=== PATIENT | female | born 1940 | race Caucasian/White ===

== ENCOUNTER 2020-09-13 17:54 | Emergency (ER) | payer OTHER ==
[2020-09-13 19:11] LABS: BILIRUBIN 1+ mg/dL (NEGATIVE); BLOOD NEGATIVE Ery/uL (NEGATIVE); CLARITY CLEAR (CLEAR); COLOR YELLOW (YELLOW); GLUCOSE (U) NORMAL (NORMAL); LEUKOCYTES 1+ Leu/uL (NEGATIVE); NITRITE NEGATIVE (NEGATIVE); PROTEIN 1+ mg/dL (NEGATIVE); SPECIFIC GRAVITY >=1.030 (1.001-1.030); UROBILINOGEN 0.2 mg/dL (0.2-1.0)
[2020-09-13 19:36] LABS: BACTERIA 2+; URINARY RBC RARE
[2020-09-13 19:52] LABS: BASOPHIL 0.7 % (0-2); EOSINOPHIL 1.2 % (0-7); HCT 34.8 % (37.0-47.0); HGB 10.6 g/dl (12.5-16.0); LYMPHOCYTE 24.4 % (15-48); MCH 29.6 pg (25.0-31.0); MCHC 30.5 g/dL (32.0-36.0); MCV 97.2 fL (78.0-100.0); MONOCYTE 7.6 % (0-12); MPV 10.4 fL (6.0-9.5); NEUTROPHIL 65.9 % (41-80); NRBC 0; PLT 350 K/uL (150-400); RBC 3.58 M/uL (4.20-5.40); RDW 13.9 % (11.5-14.0); WBC 12.3 K/uL (4.0-10.5)
[2020-09-13 20:08] LABS: ALBUMIN 3.4 g/dL (3.4-5.0); BILIRUBIN - TOTAL 0.2 mg/dL (0.2-1.0); BUN/CREAT RATIO (CALC) 32.9 RATIO; CREATININE 0.85 mg/dL (0.51-0.95); GLOBULIN (CALCULATION) 3.6 g/dL; POTASSIUM 3.9 mmol/L (3.5-5.1)
== END 2020-09-13 22:30 | disposition other institution (70) ==
LOC: FER 17:54
PROVIDERS: Emergency Medicine
DX: G93.6 Cerebral edema (principal); I10 Essential (primary) hypertension; I69.392 Facial weakness following cerebral infarction; I69.354 Hemiplegia and hemiparesis following cerebral infarction affecting left non-dominant side; E11.9 Type 2 diabetes mellitus without complications; E78.5 Hyperlipidemia, unspecified; Z79.01 Long term (current) use of anticoagulants; Z87.891 Personal history of nicotine dependence
CPT/HCPCS: 36415; 70450; 71045; 80053; 81001; 85025; 87088

== ENCOUNTER 2021-03-07 16:42 | Inpatient (IN) | payer MEDICARE ==
[2021-03-07 17:31] LABS: EOSINOPHIL 1.2 % (0-7); HGB 10.4 g/dl (12.5-16.0); LYMPHOCYTE 34.8 % (15-48); MCHC 30.6 g/dL (32.0-36.0); MCV 88.3 fL (78.0-100.0); MONOCYTE 8.9 % (0-12); MPV 10.4 fL (6.0-9.5); NEUTROPHIL 53.1 % (41-80); NRBC 0; PLT 427 K/uL (150-400); RBC 3.85 M/uL (4.20-5.40); RDW 17.6 % (11.5-14.0); WBC 11.9 K/uL (4.0-10.5)
[2021-03-07 17:35] LABS: INR 1.34 (0.9-1.2); PROTHROMBIN TIME 15.9 SECONDS (11.8-13.4)
[2021-03-07 17:36] LABS: PTT 41.3 SECONDS (24.4-34.7)
[2021-03-07 18:14] LABS: ALBUMIN 2.6 g/dL (3.4-5.0); BILIRUBIN - TOTAL 0.2 mg/dL (0.2-1.0); CREATININE 1.05 mg/dL (0.51-0.95); GLOBULIN (CALCULATION) 3.6 g/dL; POTASSIUM 3.6 mmol/L (3.5-5.1); TOTAL PROTEIN 6.2 g/dL (6.4-8.2)
[2021-03-07] MEDS ORDERED: ALPRAZOLAM 0.50.5 MG PO (21:21)
[2021-03-07] MEDS ORDERED: HYDROCODON-ACE1 EAC6 PO (21:21)
[2021-03-07] MEDS ORDERED: LEVETIRACETAM1000 MG PO (21:23)
[2021-03-07] MEDS ORDERED: PIOGLITAZONE-M1 EAC1 PO (21:24)
[2021-03-07] MEDS ORDERED: ELIQUIS5 MG PO (21:24)
[2021-03-07] MEDS ORDERED: VENLAFAXINE HC150 MG PO (21:25)
[2021-03-07] MEDS ORDERED: ATORVASTATIN CA20 MG PO (21:26)
[2021-03-07] MEDS ORDERED: TELMISARTAN80 MG PO (21:26)
[2021-03-07] MEDS ORDERED: NIFEDIPINE ER90 M1 PO (21:27)
--- NOTE | 2021-03-08 04:17 | NUR ---
Notified TELEVISION PRODUCER pt total urine output was 30ml for the past 12 hours. No further orders at this time. Will CTM
[2021-03-08 07:02] LABS: BASOPHIL 1.1 % (0-2); EOSINOPHIL 1.6 % (0-7); HCT 28.5 % (37.0-47.0); HGB 8.7 g/dl (12.5-16.0); MCH 27.3 pg (25.0-31.0); MCHC 30.5 g/dL (32.0-36.0); MCV 89.3 fL (78.0-100.0); MONOCYTE 8.8 % (0-12); MPV 10.8 fL (6.0-9.5); NEUTROPHIL 50.5 % (41-80); NRBC 0; PLT 352 K/uL (150-400); RBC 3.19 M/uL (4.20-5.40); RDW 17.5 % (11.5-14.0); WBC 9.4 K/uL (4.0-10.5)
[2021-03-08 07:13] LABS: ALBUMIN 2.2 g/dL (3.4-5.0); BILIRUBIN - TOTAL 0.2 mg/dL (0.2-1.0); BUN/CREAT RATIO (CALC) 20.9 RATIO; CREATININE 0.91 mg/dL (0.51-0.95); GLOBULIN (CALCULATION) 3.7 g/dL; MAGNESIUM 1.2 mg/dL (1.8-2.4); PHOSPHORUS 2.9 mg/dL (2.6-4.7); POTASSIUM 3.7 mmol/L (3.5-5.1); TOTAL PROTEIN 5.9 g/dL (6.4-8.2)
[2021-03-08 07:21] LABS: PRO-BNP 1774 pg/mL (<450)
[2021-03-08 11:22] LABS: BILIRUBIN NEGATIVE (NEGATIVE); BLOOD 1+ Ery/uL (NEGATIVE); CLARITY CLEAR (CLEAR); COLOR YELLOW (YELLOW); GLUCOSE (U) NORMAL (NORMAL); LEUKOCYTES 2+ Leu/uL (NEGATIVE); NITRITE POSITIVE (NEGATIVE); PROTEIN TRACE (LOW) mg/dL (NEGATIVE); UROBILINOGEN 0.2 mg/dL (0.2-1.0); pH 6.5 (5.0-9.0)
[2021-03-08 11:35] LABS: BACTERIA 4+; URINARY WBC TNTC
[2021-03-09 04:08] LABS: BASOPHIL 1.1 % (0-2); EOSINOPHIL 2.3 % (0-7); HCT 26.4 % (37.0-47.0); HGB 8.1 g/dl (12.5-16.0); LYMPHOCYTE 41.5 % (15-48); MCHC 30.7 g/dL (32.0-36.0); MONOCYTE 7.9 % (0-12); NEUTROPHIL 46.5 % (41-80); NRBC 0; PLT 348 K/uL (150-400); RDW 17.5 % (11.5-14.0); WBC 9.5 K/uL (4.0-10.5)
[2021-03-09 04:30] LABS: ALBUMIN 2.2 g/dL (3.4-5.0); BILIRUBIN - TOTAL 0.1 mg/dL (0.2-1.0); BUN/CREAT RATIO (CALC) 17.8 RATIO; CREATININE 1.07 mg/dL (0.51-0.95); GLOBULIN (CALCULATION) 3.3 g/dL; POTASSIUM 4.2 mmol/L (3.5-5.1); TOTAL PROTEIN 5.5 g/dL (6.4-8.2)
[2021-03-09 04:33] LABS: MAGNESIUM 1.8 mg/dL (1.8-2.4)
[2021-03-10 04:17] LABS: BASOPHIL 1.1 % (0-2); EOSINOPHIL 3.4 % (0-7); HCT 26.5 % (37.0-47.0); HGB 8.1 g/dl (12.5-16.0); LYMPHOCYTE 38.6 % (15-48); MCH 27.5 pg (25.0-31.0); MCHC 30.6 g/dL (32.0-36.0); MCV 89.8 fL (78.0-100.0); MONOCYTE 5.8 % (0-12); MPV 9.9 fL (6.0-9.5); NEUTROPHIL 50.5 % (41-80); NRBC 0; PLT 310 K/uL (150-400); RBC 2.95 M/uL (4.20-5.40); RDW 17.6 % (11.5-14.0); WBC 6.5 K/uL (4.0-10.5)
[2021-03-10 04:33] LABS: ALBUMIN 1.9 g/dL (3.4-5.0); BILIRUBIN - TOTAL 0.1 mg/dL (0.2-1.0); BUN/CREAT RATIO (CALC) 18.5 RATIO; CREATININE 0.92 mg/dL (0.51-0.95); GLOBULIN (CALCULATION) 3.3 g/dL; POTASSIUM 4.2 mmol/L (3.5-5.1); TOTAL PROTEIN 5.2 g/dL (6.4-8.2)
[2021-03-11 07:00] LABS: BASOPHIL 0.3 % (0-2); EOSINOPHIL 0.1 % (0-7); HCT 25.7 % (37.0-47.0); HGB 7.9 g/dl (12.5-16.0); LYMPHOCYTE 14.3 % (15-48); MCH 27.1 pg (25.0-31.0); MCHC 30.7 g/dL (32.0-36.0); MCV 88.3 fL (78.0-100.0); MONOCYTE 4.6 % (0-12); MPV 10.1 fL (6.0-9.5); NEUTROPHIL 80.1 % (41-80); NRBC 0; PLT 349 K/uL (150-400); RBC 2.91 M/uL (4.20-5.40); RDW 17.5 % (11.5-14.0)
[2021-03-11 07:03] LABS: WBC 15.4 K/uL (4.0-10.5)
[2021-03-11 07:23] LABS: BILIRUBIN - TOTAL 0.3 mg/dL (0.2-1.0); BUN/CREAT RATIO (CALC) 24.2 RATIO; CREATININE 0.91 mg/dL (0.51-0.95); GLOBULIN (CALCULATION) 3.5 g/dL; POTASSIUM 4.7 mmol/L (3.5-5.1); TOTAL PROTEIN 5.5 g/dL (6.4-8.2)
[2021-03-11 07:26] LABS: MAGNESIUM 2.4 mg/dL (1.8-2.4)
--- NOTE | 2021-03-11 09:31 | NUR ---
PT/OT BP CHECK OF 78/48 REASSESSED AFTER THERAPY LEFT AT 132/58
[2021-03-11 14:49] LABS: IRON % SATURATION 6.9 %SAT (20-50)
[2021-03-11 14:56] LABS: RETICULOCYTE COUNT 1.6 % (1.0-2.0)
--- NOTE | 2021-03-11 15:29 | NUR ---
03/11/21 Ms. Aguero lives with her son/POA, Eh Aguero. She has a 3in1 and okd wc. Mr. Aguero transfers Ms. Aguero from bed to to community health. Mr. Aguero request a hospital bed and wc. Mr. Aguero plans for Ms. Aguero to return to his home. They would like and selected [facility]. - Ida Santizo NP has seen patient once. - A referral was made to [facility] via [facility].
[2021-03-12 06:18] LABS: BASOPHIL 0.6 % (0-2); EOSINOPHIL 2.5 % (0-7); HCT 26.2 % (37.0-47.0); HGB 7.8 g/dl (12.5-16.0); LYMPHOCYTE 24.1 % (15-48); MCH 27.4 pg (25.0-31.0); MCHC 29.8 g/dL (32.0-36.0); MCV 91.9 fL (78.0-100.0); MONOCYTE 7.2 % (0-12); MPV 10.3 fL (6.0-9.5); NRBC 0; PLT 312 K/uL (150-400); RBC 2.85 M/uL (4.20-5.40); RDW 17.4 % (11.5-14.0); WBC 9.8 K/uL (4.0-10.5)
[2021-03-12 06:41] LABS: BAND 4 % (0-10); LYMPHOCYTE(M) 24 % (15-48); MONOCYTE(M) 3 % (0-12); NEUTROPHILS(M) 69 % (41-80); PLATELET ESTIMATE NORMAL; PLATELET MORPHOLOGY NORMAL
[2021-03-12 07:08] LABS: ALBUMIN 1.9 g/dL (3.4-5.0); BILIRUBIN - TOTAL 0.2 mg/dL (0.2-1.0); BUN/CREAT RATIO (CALC) 21.4 RATIO; CREATININE 1.03 mg/dL (0.51-0.95); GLOBULIN (CALCULATION) 3.3 g/dL; MAGNESIUM 1.9 mg/dL (1.8-2.4); POTASSIUM 4.7 mmol/L (3.5-5.1); TOTAL PROTEIN 5.2 g/dL (6.4-8.2)
--- NOTE | 2021-03-12 13:12 | NUR ---
03/12/21 A referral was made to [facility] for a hospital bed and WC.
[2021-03-12] MEDS ORDERED: POLY-IRON150 MG PO (16:03)
[2021-03-12] MEDS ORDERED: CARDIZEM CD240 MG PO (16:03)
[2021-03-12] MEDS ORDERED: DIGITEK125 MCG PO (16:03)
== END 2021-03-12 16:45 | disposition home health service (06) | DRG 308 ==
LOC: FER 16:42 → FTCU 18:47
PROVIDERS: Emergency Medicine; Internal Medicine; Nurse Practitioner; ADMIT Family Medicine
DX: I48.0 Paroxysmal atrial fibrillation (principal); G93.41 Metabolic encephalopathy; N30.00 Acute cystitis without hematuria; I69.354 Hemiplegia and hemiparesis following cerebral infarction affecting left non-dominant side; C79.31 Secondary malignant neoplasm of brain; F05 Delirium due to known physiological condition; Z20.822 Contact with and (suspected) exposure to COVID-19; F03.90 Unspecified dementia, unspecified severity, without behavioral disturbance, psychotic disturbance, mood disturbance, and anxiety; L89.220 Pressure ulcer of left hip, unstageable; G40.909 Epilepsy, unspecified, not intractable, without status epilepticus; D50.9 Iron deficiency anemia, unspecified; E83.42 Hypomagnesemia; E87.6 Hypokalemia; E11.9 Type 2 diabetes mellitus without complications; E78.5 Hyperlipidemia, unspecified; Z85.118 Personal history of other malignant neoplasm of bronchus and lung
CPT/HCPCS: 36415; 71045; 80053; 80162; 81001; 82607; 82962; 83036; 83540; 83550; 83605; 83735; 83880; 84100; 84145; 84443; 84484; 85025; 85610; 85730; 93005; 94010; 94760; 97162; 97166; 97530-GP; 97535; J0696; J1160; J2543; J3475; J7030; U0002